=== PATIENT | female | born 1960 | race Caucasian/White ===

== ENCOUNTER 2017-08-15 23:28 | Inpatient (IN) | payer OTHER ==
[~2017-08-15] VITALS: Ht 162.6 cm; Wt 87.5 kg
[~2017-08-15 23:28] MED LIST: AMITRIPTYLINE H25 M2; ARTHRITIS PAIN650 M2 PO; ATIVAN1 MG; AUGMENTIN 875875 M1 PO; BENADRYL25 MG; CIPRO500 MG PO; CIPROFLOXACIN500 M3; DOCUSATE SODIU100 MG PO; ERYTHROCIN PO; FLAGYL500 MG PO; FLONASE 0.05%50 MCG NASAL; HAIR, SKIN & N1 EAC3 PO; HYDROCODONE-AP1 EAC6 PO; IBUPROFEN 200200 M1 PO; LEVAQUIN 500 M500 M2 PO; MIRALAX255 GM PO; OMEPRAZOLE 20 M20 M1; ONDANSETRON HCL4 M2 PO; OXYCODONE HCL 55 MG PO; PHENERGAN 25 MG25 M1 PO; PHENERGAN25 M2 PO; PRILOSEC 20 MG20 MG PO; PRILOSEC40 MG PO; REGLAN 10 MG TA10 M1; REGLAN 5 MG TAB5 MG PO; SENOKOT-S1 TA1 PO; TRANSDERM-SCO1 PATC1; VENTOLIN HFA 1818 GM INH; ZOFRAN4 MG; ZYRTEC10 MG PO
[2017-08-15 23:38] VITALS: BP 155/93
[2017-08-15] MEDS ORDERED: YOSPRALA DR 811 EACH PO (23:40)
[2017-08-15 23:56] LABS: URINE BILIRUBIN NEGATIVE (Negative); URINE BLOOD NEGATIVE (Negative); URINE CLARITY CLEAR; URINE COLOR YELLOW; URINE GLUCOSE-RANDOM NEGATIVE (Negative); URINE KETONES NEGATIVE (Negative); URINE LEUKOCYTES-REFLEX TRACE (Negative); URINE NITRITE-REFLEX NEGATIVE (Negative); URINE PROTEIN NEGATIVE (Negative); URINE SPECIFIC GRAVITY <= 1.005 (1.005-1.030); URINE UROBILINOGEN 0.2 E.U./dl (0.2-1.0)
[2017-08-16 00:05] LABS: ABSOLUTE BASOPHILS 0.1 thou/uL (0.0-0.2); ABSOLUTE EOSINOPHILS 0.2 thou/uL (0.0-0.7); ABSOLUTE LYMPHOCYTES 2.7 thou/uL (0.8-5.3); ABSOLUTE MONOCYTES 0.7 thou/uL (0.0-1.2); ABSOLUTE NEUTROPHILS 9.4 thou/uL (1.6-8.1); BASOPHILS 0.7 %; EOSINOPHILS 1.8 %; HEMATOCRIT 39.7 % (37.0-47.0); HEMOGLOBIN 13.7 gm/dL (12.0-15.0); LYMPHOCYTES 20.7 %; MCH 31.6 pg (26.0-34.0); MCHC 34.5 g/dL (28.0-37.0); MCV 91.6 fL (80.0-100.0); MONOCYTES 5.3 %; MPV 8.7 fl. (7.2-11.1); NUCLEATED RBCS 0 /100WBC; PLATELET COUNT* 269 thou/uL (150-400); POLYS 71.5 %; RBC 4.33 mil/uL (4.20-5.00); RDW-CV 13.1 % (10.5-14.5); WBC 13.2 thou/uL (4.0-11.0)
[2017-08-16 00:08] LABS: CALCIUM 9.2 mg/dL (8.5-10.1); CREATININE 1.1 mg/dL (0.6-1.3); POTASSIUM 4.1 mmol/L (3.5-5.1)
[2017-08-16 00:09] LABS: MUCUS 0-3 Light strn/LPF (None Seen); SQUAMOUS 0-3 Few /LPF (0-3); URINE RBC 0-2 Rare /HPF (0-2); URINE WBC-REFLEX 6-15 Few /HPF (0-5)
[2017-08-16 00:10] LABS: CASTS None Seen /LPF (None Seen); CRYSTALS None Seen /LPF (None Seen)
[2017-08-16 00:12] LABS: TOTAL BILIRUBIN 0.4 mg/dL (<0.1-1.0); TOTAL PROTEIN 7.8 g/dL (6.4-8.2)
[2017-08-16 01:43] LABS: ICTOTEST (BILI CONFIRMATORY) Negative (Negative)
[2017-08-16 02:59] VITALS: BP 111/34
--- NOTE | 2017-08-16 05:51 | NUR ---
patient remained stable through shift. Ambulates with steady gait to the restrom. IV infusing well. No complaints of pain sice being on unit. Pain medications given in the ed before arrival on unit. Resting in bed at this time. HOurly rounding completed as documented.
[2017-08-16 08:00] VITALS: BP 98/68
[2017-08-16 10:43] LABS: ABSOLUTE BASOPHILS 0.1 thou/uL (0.0-0.2); ABSOLUTE EOSINOPHILS 0.3 thou/uL (0.0-0.7); ABSOLUTE LYMPHOCYTES 2.5 thou/uL (0.8-5.3); ABSOLUTE MONOCYTES 0.5 thou/uL (0.0-1.2); ABSOLUTE NEUTROPHILS 5.9 thou/uL (1.6-8.1); EOSINOPHILS 3.6 %; HEMATOCRIT 38.5 % (37.0-47.0); HEMOGLOBIN 13.2 gm/dL (12.0-15.0); LYMPHOCYTES 27.3 %; MCH 31.5 pg (26.0-34.0); MCHC 34.3 g/dL (28.0-37.0); MCV 91.9 fL (80.0-100.0); MONOCYTES 4.9 %; MPV 8.5 fl. (7.2-11.1); NUCLEATED RBCS 0 /100WBC; PLATELET COUNT* 249 thou/uL (150-400); POLYS 63.2 %; RBC 4.19 mil/uL (4.20-5.00); RDW-CV 13.1 % (10.5-14.5); WBC 9.3 thou/uL (4.0-11.0)
[2017-08-16 10:51] LABS: CALCIUM 8.8 mg/dL (8.5-10.1); POTASSIUM 4.3 mmol/L (3.5-5.1)
[2017-08-16 11:57] LABS: ESR (SEDRATE) 28 mm/hr (0-30)
[2017-08-16 16:27] VITALS: BP 99/49
--- NOTE | 2017-08-16 18:41 | NUR ---
PATIENT REMAINED ALERT AND ORIENTED X'S 4. VITAL SIGNS AND SPO2 STABLE. IV CLEAN, FLUIDS INFUSING. TOLERATED ANTIBIOTICS. PATIENT DENIES PAIN DURING SHIFT. TOLERATED DIET. NO NAUSEA AND VOMITING. VOIDED AND PASSED BM WITHOUT ISSUE. COMPLETED HOURLY ROUNDING. CALL LIGHT WITHIN REACH. WILL CONTINUE TO MONITOR.
[2017-08-16 20:55] VITALS: BP 115/67
[2017-08-16 23:45] VITALS: BP 117/56
--- NOTE | 2017-08-17 00:30 | NUR ---
PATIENT ALERT AND ORIENTED. VITALS STABLE. RA. DENIES THE NEED FOR PAIN MEDICATION. TOLERATING DIET. UP INDEPENDENTLY. HOURLY ROUNDS. INSTRUCTED TO CALL FOR ASSISTANCE. BEATRIS SANTOS TOOK OVER PATIENTS CARE AT 0015. NURSING WILL CONTINUE TO MONITOR.
--- NOTE | 2017-08-17 01:09 | NUR ---
ASSUMED CARE OF PATIENT AT 0015. AGREE WITH PREVIOUS ASSESSMENT. DENIED PAIN AT THIS TIME. RESTING QUIETLY IN BED. IV ANTIBIODIC INFUSING AT THIS TIME. CALL LIGHT WITHIN REACH.
[2017-08-17 04:35] LABS: HEMOGLOBIN 12.4 gm/dL (12.0-15.0); MCH 31.8 pg (26.0-34.0); MCHC 34.4 g/dL (28.0-37.0); MCV 92.5 fL (80.0-100.0); MPV 8.7 fl. (7.2-11.1); RBC 3.9 mil/uL (4.20-5.00); RDW-CV 12.9 % (10.5-14.5); WBC 7.1 thou/uL (4.0-11.0)
[2017-08-17 05:13] LABS: ALBUMIN 3.3 g/dL (3.4-5.0); CALCIUM 8.8 mg/dL (8.5-10.1); CREATININE 0.9 mg/dL (0.6-1.3); MAGNESIUM 2.4 mg/dL (1.8-2.4); POTASSIUM 4.7 mmol/L (3.5-5.1); TOTAL BILIRUBIN 0.3 mg/dL (<0.1-1.0); TOTAL PROTEIN 6.3 g/dL (6.4-8.2)
[2017-08-17 08:00] VITALS: BP 99/43
--- NOTE | 2017-08-17 08:09 | NUR ---
ALERT AND ORIENTED X4. UP AD NATALIO. NO C/O PAIN. THIS AM REFUSED ANTIBIODIC DUE TO C/O NAUSEA. NAUSEA MEDICATION GIVEN. NEXT SHIFT SAID THEY WILL TRY TO GET PATIENT TO TAKE ANTIBIODIC. CALL LIGHT WITHIN REACH.
--- NOTE | 2017-08-17 11:04 | NUR ---
PT.UP WALKING IN HALLS. GAIT STEADY. HOPES TO GO HOME TODAY. SHE IS INDEPENDENT AND WORKS [employer]. HER CHILDREN ARE SUPPORIVE. SHE DOES NOT USE ANY DME AND NO HX OF HH. SHE WILL NOT HAVE ANY DISCHARGE NEEDS.
[2017-08-17] MEDS ORDERED: FLAGYL500 MG PO (17:05)
[2017-08-17] MEDS ORDERED: LEVAQUIN 500 M500 M2 PO (17:06)
[2017-08-17 17:07] VITALS: BP 117/56
[2017-08-17 17:51] VITALS: BP 121/73
--- NOTE | 2017-08-17 18:29 | NUR ---
PATIENT LEFT UNIT AMBULATORY AT 1711 WITH NURSING STAFF. IV DC'D. EDUCATED PATIENT ON DISCHARGE INSTRUCTIONS AND NEW MED SCRIPTS. PATIENT VERBALIZED UNDERSTANDING. ALL BELONGINGS LEFT WITH PATIENT.
--- NOTE | 2017-08-26 15:07 | CON ---
[address] [address] CONSULTATION Name: YOUNG BROWN Room: [address] IN M.R.#: [id number] Admission: 08/16/17 Attend Phys: Corey Hunter MD Discharge: 08/17/17 Date of : 64 Report #: [id number] THIS REPORT FOR: //name// CC: Corey Villanueva Baker DATE OF SERVICE: 08/16/2017 ADDENDUM The patient who presented with abdominal pain and leukocytosis with symptoms of fever and chills and found to have diverticulitis per CT. She also has constipation for which she takes Linzess. We will continue her IV antibiotics and bowel regimen. We will consider colonoscopy in 6 weeks. The patient may start having low-residue diet. <ELECTRONICALLY SIGNED> By: Dayana Melton MD 08/26/17 1507 1708 [id number] Melton MD /nt
--- NOTE | 2017-08-26 15:07 | CON ---
[address] [address] CONSULTATION Name: YOUNG BROWN Room: [address] IN .R.#: [id number] Admission: 08/16/17 Attend Phys: Corey Hunter MD Discharge: 08/17/17 Date of : 64 Report #: [id number] THIS REPORT FOR: //name// CC: Corey Acosta DICTATED BY: Alis Mitchell [facility] DATE OF SERVICE: 08/16/2017 Please note at the time of this dictation, the patient was seen and physically examined by myself. REASON FOR CONSULTATION: Abdominal pain, fever. 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 She states earlier in the week, she saw her PCP. She was having upper respiratory, head and chest congestion, felt that it was just viral in nature. She did not really notice but during this past week, her bowel habits have changed in that she had become more constipated. She states her bowels moved this morning; they were still somewhat loose, but she took a laxative of milk of mag and then another one this morning prior to the consultation. She denies any nausea or vomiting. She is no longer having the fever. She states her pain has greatly subsided at this time. The patient had last EGD and colonoscopy done back in 08/2014. EGD showed some mild gastritis, colon showed some diverticulosis of the sigmoid colon and internal hemorrhoids; otherwise was negative. ALLERGIES: PENICILLIN, ERYTHROMYCIN, METRONIDAZOLE, REGLAN AND DEXILANT. MEDICATIONS: From home include albuterol, Zyrtec and aspirin/omeprazole. PAST MEDICAL HISTORY: Rheumatoid arthritis in remission since 2016, being worked up for possible plaque psoriasis, history of diverticulitis, peptic ulcer disease, COPD with chronic bronchitis, GERD, history of H. pylori, allergies, hiatal hernia and history of colon polyps. PAST SURGICAL HISTORY: Complete hysterectomy, appendectomy, cholecystectomy, parathyroidectomy and she has had a left hemicolectomy done secondary to diverticulitis in which she had had 4 bouts prior to. FAMILY HISTORY: [place] [address] CONSULTATION Name: YOUNG BROWN Room: [address]#: [id number] Admission: 08/16/17 Attend Phys: Corey Hunter MD Discharge: 08/17/17 Date of : 64 Report #: [id number] SOCIAL HISTORY: Denies any alcohol, tobacco or illegal drug use. She quit smoking back in 2011. REVIEW OF SYSTEMS: Twelve-point review of systems is essentially negative except what is mentioned in the HPI. PHYSICAL EXAMINATION: VITAL SIGNS: Temperature 36.4, pulse 64, respirations 16, blood pressure 98/68. HEART: Regular rate and rhythm. LUNGS: Clear. ABDOMEN: Soft, positive bowel sounds in all 4 quadrants with some left lower quadrant tenderness noted to palpation. LABORATORY DATA: Hemoglobin on admission was 13.2; white count on admission was 13.2, she is down to 9.3; hematocrit is 36.5; platelets 249. Sodium 138, potassium 4.3, chloride 103, CO2 of 31, BUN is 11, creatinine 1, GFR is 55 and glucose is 136. CT of the abdomen and pelvis showed thickening of the bowel wall in the sigmoid and descending junction with adjunct, adjacent stranding with inflammatory changes. IMPRESSION: 1. Abdominal pain, diverticulitis. 2. Fever and chills. 3. Leukocytosis, resolved. 4. Family history; mother, ovarian cancer. PLAN: 1. Continue her antibiotics. 2. Advance her diet as tolerated to low residue. 3. If the patient is able to eat and drink and bowels move tomorrow, okay for her to go home on antibiotics. 4. Office visit in 2-3 weeks and schedule colon at that time. Thank you for allowing us to participate in this patient's care. Please do not hesitate to call with any questions in regard to this consult. <ELECTRONICALLY SIGNED> By: Dayana Melton MD 08/26/17 1507 1213 [id number] Melton MD /nt
== END 2017-08-17 18:32 | disposition home or self-care (01) | DRG 392 ==
LOC: M.ERS 23:28 → M.ORTHSURG 08-16 01:59 → M.TBA-ER 08-16 01:59 → M.ORTHSURG 08-16 03:02
PROVIDERS: Family Medicine; Physician Assistant; ADMIT Internal Medicine
DX: K57.32 Diverticulitis of large intestine without perforation or abscess without bleeding (principal); N39.0 Urinary tract infection, site not specified; K21.9 Gastro-esophageal reflux disease without esophagitis; K59.00 Constipation, unspecified; M06.9 Rheumatoid arthritis, unspecified; E89.0 Postprocedural hypothyroidism; J44.9 Chronic obstructive pulmonary disease, unspecified; Z86.010 Personal history of colon polyps; Z88.0 Allergy status to penicillin; Z90.49 Acquired absence of other specified parts of digestive tract; Z87.11 Personal history of peptic ulcer disease; Z88.1 Allergy status to other antibiotic agents; Z88.8 Allergy status to other drugs, medicaments and biological substances; Z80.41 Family history of malignant neoplasm of ovary; Z87.891 Personal history of nicotine dependence

== ENCOUNTER → 2017-12-30 | Outpatient (CLI) | payer OTHER ==
[~2017-12-30] MED LIST changes: +YOSPRALA DR 811 EACH PO
== END ==
LOC: M.CT 07:53
DX: Z13.6 Encounter for screening for cardiovascular disorders (principal)

== ENCOUNTER → 2018-07-11 | Outpatient (CLI) | payer OTHER ==
[2018-07-11 07:51] LABS: ALKALINE PHOSPHATASE 66 U/L (46-116); ANION GAP 7 mmol/L (7-16); BUN 12 mg/dL (7-18); CALCIUM 8.9 mg/dL (8.5-10.1); CHLORIDE 101 mmol/L (98-107); CHOLESTEROL 176 mg/dL (<200); CO2 30 mmol/L (21-32); CREATININE 0.9 mg/dL (0.6-1.3); GLUCOSE 118 mg/dL (70-99); HDL CHOLESTEROL 31 mg/dL (>40); LDL CHOLESTEROL 123 mg/dL (<100); POTASSIUM 4.3 mmol/L (3.5-5.1); SGOT 34 U/L (15-37); SGPT 66 U/L (30-65); SODIUM 138 mmol/L (136-145); TC:HDL 5.7 Ratio (Not establshd); TOTAL BILIRUBIN 0.4 mg/dL (<0.1-1.0); TRIGLYCERIDE 112 mg/dL (<150); VLDL 22 mg/dL (<40)
[2018-07-11 07:58] LABS: SERUM ASSESSMENT Clear
[2018-07-11 08:46] LABS: HEMATOCRIT 44.1 % (37.0-47.0); HEMOGLOBIN 15.1 gm/dL (12.0-15.0); MCH 31.8 pg (26.0-34.0); MCHC 34.3 g/dL (28.0-37.0); MCV 92.7 fL (80.0-100.0); MPV 8.8 fl. (7.2-11.1); RBC 4.75 mil/uL (4.20-5.00); RDW-CV 12.9 % (10.5-14.5); WBC 7.1 thou/uL (4.0-11.0)
[2018-07-11 23:12] LABS: GLYCOHEMOGLOBIN (HGB A1C) 6.3 % (4.8-5.6)
== END ==
LOC: M.LAB 07:06
PROVIDERS: Nurse Practitioner Family
DX: E20.0 Idiopathic hypoparathyroidism (principal); M06.9 Rheumatoid arthritis, unspecified; L40.9 Psoriasis, unspecified; R53.83 Other fatigue; R79.89 Other specified abnormal findings of blood chemistry

== ENCOUNTER → 2018-10-02 | Outpatient (CLI) | payer OTHER ==
[2018-10-02 10:41] LABS: URINE BILIRUBIN NEGATIVE (Negative); URINE BLOOD NEGATIVE (Negative); URINE CLARITY CLEAR; URINE COLOR YELLOW; URINE GLUCOSE-RANDOM NEGATIVE (Negative); URINE KETONES NEGATIVE (Negative); URINE LEUKOCYTES NEGATIVE (Negative); URINE NITRITE NEGATIVE (Negative); URINE PROTEIN NEGATIVE (Negative); URINE SPECIFIC GRAVITY 1.025 (1.005-1.030); URINE UROBILINOGEN 0.2 E.U./dl (0.2-1.0)
[2018-10-02 10:41] LABS: ABSOLUTE BASOPHILS 0.1 thou/uL (0.0-0.2); ABSOLUTE EOSINOPHILS 0.3 thou/uL (0.0-0.7); ABSOLUTE LYMPHOCYTES 1.8 thou/uL (0.8-5.3); ABSOLUTE MONOCYTES 0.3 thou/uL (0.0-1.2); ABSOLUTE NEUTROPHILS 5.4 thou/uL (1.6-8.1); BASOPHILS 0.8 %; EOSINOPHILS 3.3 %; HEMATOCRIT 39.1 % (37.0-47.0); HEMOGLOBIN 13.6 gm/dL (12.0-15.0); LYMPHOCYTES 23.3 %; MCH 31.7 pg (26.0-34.0); MCHC 34.8 g/dL (28.0-37.0); MONOCYTES 3.8 %; MPV 8.3 fl. (7.2-11.1); NUCLEATED RBCS 0 /100WBC; PLATELET COUNT* 242 thou/uL (150-400); POLYS 68.8 %; RDW-CV 13.1 % (10.5-14.5); WBC 7.9 thou/uL (4.0-11.0)
[2018-10-02 10:53] LABS: ALBUMIN 3.7 g/dL (3.4-5.0); ALKALINE PHOSPHATASE 62 U/L (46-116); ANION GAP 6 mmol/L (7-16); BUN 11 mg/dL (7-18); CALCIUM 8.7 mg/dL (8.5-10.1); CHLORIDE 104 mmol/L (98-107); CHOLESTEROL 149 mg/dL (<200); CO2 30 mmol/L (21-32); CREATININE 0.9 mg/dL (0.6-1.3); GLUCOSE 107 mg/dL (70-99); HDL CHOLESTEROL 28 mg/dL (>40); LDL CHOLESTEROL 105 mg/dL (<100); POTASSIUM 4.4 mmol/L (3.5-5.1); SGOT 30 U/L (15-37); SGPT 50 U/L (30-65); SODIUM 140 mmol/L (136-145); TC:HDL 5.3 Ratio (Not establshd); TOTAL BILIRUBIN 0.5 mg/dL (<0.1-1.0); TOTAL PROTEIN 7.5 g/dL (6.4-8.2); TRIGLYCERIDE 82 mg/dL (<150); VLDL 16 mg/dL (<40)
[2018-10-02 10:54] LABS: SERUM ASSESSMENT Clear
[2018-10-02 23:06] LABS: GLYCOHEMOGLOBIN (HGB A1C) 6.3 % (4.8-5.6)
[2018-10-06 14:06] LABS: ANA INTERPRETATION Negative (Negative)
== END ==
LOC: M.LAB 09:58
PROVIDERS: Family Medicine
DX: I10 Essential (primary) hypertension (principal); E88.81 Metabolic syndrome and other insulin resistance; R53.83 Other fatigue; M79.10 Myalgia, unspecified site; K21.9 Gastro-esophageal reflux disease without esophagitis; E78.00 Pure hypercholesterolemia, unspecified; Z68.34 Body mass index [BMI] 34.0-34.9, adult; Z83.3 Family history of diabetes mellitus

== ENCOUNTER → 2019-01-24 | Outpatient (CLI) | payer OTHER ==
[2019-01-24 09:55] LABS: ABSOLUTE BASOPHILS 0.1 thou/uL (0.0-0.2); ABSOLUTE EOSINOPHILS 0.3 thou/uL (0.0-0.7); ABSOLUTE MONOCYTES 0.3 thou/uL (0.0-1.2); ABSOLUTE NEUTROPHILS 3.3 thou/uL (1.6-8.1); BASOPHILS 0.9 %; EOSINOPHILS 5.1 %; HEMATOCRIT 41.5 % (37.0-47.0); HEMOGLOBIN 14.4 gm/dL (12.0-15.0); LYMPHOCYTES 34.2 %; MCH 32.2 pg (26.0-34.0); MCHC 34.7 g/dL (28.0-37.0); MONOCYTES 5.3 %; MPV 8.5 fl. (7.2-11.1); NUCLEATED RBCS 0 /100WBC; PLATELET COUNT* 255 thou/uL (150-400); POLYS 54.5 %; RBC 4.46 mil/uL (4.20-5.00)
[2019-01-24 10:04] LABS: ALBUMIN 3.8 g/dL (3.4-5.0); CALCIUM 8.8 mg/dL (8.5-10.1); CREATININE 0.9 mg/dL (0.6-1.3); POTASSIUM 4.6 mmol/L (3.5-5.1); TOTAL BILIRUBIN 0.4 mg/dL (<0.1-1.0); TOTAL PROTEIN 8.2 g/dL (6.4-8.2)
[2019-01-25 05:37] LABS: GLYCOHEMOGLOBIN (HGB A1C) 6.2 % (4.8-5.6)
== END ==
LOC: M.LAB 09:27
PROVIDERS: Family Medicine
DX: R73.03 Prediabetes (principal); I10 Essential (primary) hypertension; R73.09 Other abnormal glucose

== ENCOUNTER → 2019-02-05 | Outpatient (CLI) | payer OTHER ==
[2019-02-06 06:06] LABS: HEPATITIS B SURFACE AG Negative (Negative)
== END ==
LOC: M.LAB 15:06
PROVIDERS: Family Medicine
DX: R94.5 Abnormal results of liver function studies (principal)

== ENCOUNTER → 2019-02-13 | Outpatient (CLI) | payer OTHER ==
--- NOTE | 2019-02-13 13:28 | 2DMMODE ---
[place] [address] 2 D/M-MODE ECHOCARDIOGRAM Name: YOUNG BROWN Room: [facility]#: [id number] Admission: 02/13/19 Attend Phys: Ted Guzman, Discharge: Date of : 64 Date of Service: 02/13/19 1328 Report #: [id number] THIS REPORT FOR: //name// APPROVED REPORT Study performed: 02/13/2019 10:32:18 EXAM: Comprehensive 2D, Doppler, and color-flow Echocardiogram Patient Location: Out-Patient Status: routine BSA: 1.97 HR: 65 bpm BP: 134/903 mmHg Rhythm: NSR Other Information Study Quality: Good Indications Dizziness 2D Dimensions IVSd: 8.11 (7-11mm) LVOT Diam: 19.31 (18-24mm) LVDd: 46.94 mm PWd: 8.54 (7-11mm) Ascending Ao: 33.62 (22-36mm) LVDs: 30.23 (25-40mm) Aortic Root: 29.60 mm Volumes Left Atrial Volume (Systole) LA ESV Index: 18.40 mL/m2 Aortic Valve AoV Peak Vivek.: 1.59 m/s AO Peak Gr.: 10.10 mmHg LVOT Max P.66 mmHg AO Mean Gr.: 6.25 mmHg LVOT Mean P.44 mmHg LVOT Max V: 1.38 m/s AO V2 VTI: 31.32 cm LVOT Mean V: 0.84 m/s RACHEL (VTI): 2.50 cm2 LVOT V1 VTI: 26.78 cm Mitral Valve E/A Ratio: 1.05 MV Decel. Time: 225.84 ms MV E Max Vivek.: 0.62 m/[place] [address] 2 D/M-MODE ECHOCARDIOGRAM Name: YOUNG BORWN Room: [facility]#: [id number] Admission: 02/13/19 Attend Phys: Ted Guzman, Discharge: Date of : 64 Date of Service: 02/13/19 1328 Report #: [id number] MV PHT: 65.49 ms MVA (PHT): 3.36 cm2 TDI E/Lateral E': 4.77 E/Medial E': 4.13 Medial E' Vivek.: 0.15 m/s Lateral E' Vivek.: 0.13 m/s Pulmonary Valve PV Peak Vivek.: 1.09 m/s PV Peak Gr.: 4.76 mmHg Tricuspid Valve RAP Estimate: 5.00 mmHg TR Peak Gr.: 19.79 mmHg RVSP: 24.00 mmHg PA Pressure: 24.00 mmHg Left Ventricle The left ventricle is normal size. There is normal LV segmental wall motion. There is normal left ventricular wall thickness. Left ventricular systolic function is normal. The left ventricular ejection fraction is within the normal range. LVEF is 55-60%. The left ventricular diastolic function is normal. Right Ventricle The right ventricle is normal size. The right ventricular systolic function is normal. Atria The left atrium size is normal. The right atrium size is normal. Aortic Valve The aortic valve is normal in structure. No aortic regurgitation is present. There is no aortic valvular stenosis. Mitral Valve The mitral valve is normal in structure. Trace mitral regurgitation. No evidence of mitral valve stenosis. Tricuspid Valve The tricuspid valve is normal in structure. Trace tricuspid regurgitation. No pulmonary hypertension. Pulmonic Valve The pulmonary valve is normal in structure. There is no pulmonic [place] [address] 2 D/M-MODE ECHOCARDIOGRAM Name: YOUNG BROWN Room: [facility]#: [id number] Admission: 02/13/19 Attend Phys: Ted Guzman, Discharge: Date of : 64 Date of Service: 02/13/19 1328 Report #: [id number] Great Vessels The aortic root is normal in size. IVC is normal in size and collapses >50% with inspiration. Pericardium There is no pericardial effusion. <Conclusion> The left ventricle is normal size. There is normal left ventricular wall thickness. Left ventricular systolic function is normal. The left ventricular ejection fraction is within the normal range. LVEF is 55-60%. The left ventricular diastolic function is normal. The right ventricle is normal size. The left atrium size is normal. The aortic valve is normal in structure. The mitral valve is normal in structure. Trace mitral regurgitation. The tricuspid valve is normal in structure. IVC is normal in size and collapses >50% with inspiration. There is no pericardial effusion. There is normal LV segmental wall motion. <ELECTRONICALLY SIGNED> By: Oc Hernandez MD, FACC 02/13/19 1328 1328 1328 Oc Hernandez MD, FACC /INF
--- NOTE | 2019-02-14 12:48 | EKG ---
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
--- NOTE | 2019-02-17 17:31 | 24HR ---
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 The mean heart rate was 73 bpm. The maximum heart rate was 116 bpm corresponding with sinus tachycardia 4:55 PM. The minimum heart rate was 38 bpm corresponding with sinus bradycardia 8:53 AM. The patient exhibited tachycardia defined as heart rate greater than 100 bpm 5% of the monitored time. The patient exhibited bradycardia defined as heart rate less than 50 bpm 2% of the monitored time. There were rare premature ventricular contractions. There were no significant episodes of nonsustained or sustained ventricular arrhythmia. There were rare premature atrial contractions noted. There was a single atrial triplet noted. There were no episodes of significant nonsustained or sustained supraventricular arrhythmia. There was no evidence of underlying atrial fibrillation or flutter. There were no significant pauses and rhythm. A diary was submitted reporting palpitations and dizziness. Symptoms did not appear to correlate with [place] [address] HOLTER MONITOR REPORT Name: BROWNYOUNG SHOOK Room: [facility]#: [id number] Admission: 02/13/19 Attend Phys: Ted Guzman, Discharge: Date of : 64 Date of Service: 02/16/19923 Report #: [id number] Electronically Signed On 02-17-2019 17:31:10 CDT by Ted Guzman [email or web address] <ELECTRONICALLY SIGNED> By: Ted Guzman MD, KIM 02/17/19 1731 3 3 Ted Guzman MD, FACAndree /EPI
== END ==
LOC: M.CRD 10:30
DX: R00.2 Palpitations (principal); R42 Dizziness and giddiness; K21.9 Gastro-esophageal reflux disease without esophagitis; E78.00 Pure hypercholesterolemia, unspecified; Z88.8 Allergy status to other drugs, medicaments and biological substances; Z88.0 Allergy status to penicillin

== ENCOUNTER → 2019-02-20 | Outpatient (CLI) | payer OTHER | LOC: M.ULTRA 07:36 | DX: K76.0 Fatty (change of) liver, not elsewhere classified (principal); R94.5 Abnormal results of liver function studies ==

== ENCOUNTER → 2019-02-25 | Outpatient (CLI) | payer OTHER ==
[2019-02-25 16:40] LABS: % SATURATION 21 % (20-39); IRON 69 ug/dL (50-175)
== END ==
LOC: M.LAB 15:45
PROVIDERS: Family Medicine
DX: R94.5 Abnormal results of liver function studies (principal)

== ENCOUNTER → 2019-04-20 | Outpatient (CLI) | payer OTHER ==
[2019-04-20 11:53] LABS: ALBUMIN 3.9 g/dL (3.4-5.0); CALCIUM 9.2 mg/dL (8.5-10.1); CREATININE 1.1 mg/dL (0.6-1.3); POTASSIUM 4.1 mmol/L (3.5-5.1); TOTAL BILIRUBIN 0.3 mg/dL (<0.1-1.0); TOTAL PROTEIN 8.1 g/dL (6.4-8.2)
[2019-04-20 23:06] LABS: GLYCOHEMOGLOBIN (HGB A1C) 5.9 % (4.8-5.6)
== END ==
LOC: M.LAB 11:24
PROVIDERS: Family Medicine
DX: Z12.31 Encounter for screening mammogram for malignant neoplasm of breast (principal)

== ENCOUNTER → 2019-05-06 | Outpatient (CLI) | payer OTHER ==
[2019-05-08 14:09] LABS: ANA INTERPRETATION Negative (Negative)
== END ==
LOC: M.RAD 13:10
PROVIDERS: Internal Medicine Rheumatology
DX: M77.52 Other enthesopathy of left foot and ankle (principal); M77.51 Other enthesopathy of right foot and ankle; M79.642 Pain in left hand; M79.641 Pain in right hand

== ENCOUNTER → 2019-07-11 | Outpatient (CLI) | payer OTHER ==
[2019-07-11 10:05] LABS: ABSOLUTE BASOPHILS 0.1 thou/uL (0.0-0.2); ABSOLUTE EOSINOPHILS 0.3 thou/uL (0.0-0.7); ABSOLUTE LYMPHOCYTES 1.7 thou/uL (0.8-5.3); ABSOLUTE MONOCYTES 0.3 thou/uL (0.0-1.2); ABSOLUTE NEUTROPHILS 4.8 thou/uL (1.6-8.1); EOSINOPHILS 3.5 %; HEMATOCRIT 40.2 % (37.0-47.0); HEMOGLOBIN 13.9 gm/dL (12.0-15.0); LYMPHOCYTES 23.7 %; MCH 32.1 pg (26.0-34.0); MCHC 34.7 g/dL (28.0-37.0); MCV 92.5 fL (80.0-100.0); MONOCYTES 4.6 %; NUCLEATED RBCS 0 /100WBC; PLATELET COUNT* 243 thou/uL (150-400); POLYS 67.2 %; RBC 4.34 mil/uL (4.20-5.00); RDW-CV 12.9 % (10.5-14.5); WBC 7.2 thou/uL (4.0-11.0)
[2019-07-11 10:22] LABS: ALBUMIN 3.7 g/dL (3.4-5.0); CALCIUM 8.3 mg/dL (8.5-10.1); CREATININE 0.9 mg/dL (0.6-1.3); POTASSIUM 4.5 mmol/L (3.5-5.1); TOTAL BILIRUBIN 0.3 mg/dL (<0.1-1.0); TOTAL PROTEIN 7.5 g/dL (6.4-8.2)
[2019-07-11 11:05] LABS: ESR (SEDRATE) 14 mm/hr (0-30)
== END ==
LOC: M.LAB 08:59
PROVIDERS: Family Medicine
DX: I10 Essential (primary) hypertension (principal); R60.9 Edema, unspecified

== ENCOUNTER → 2019-09-30 | Outpatient (CLI) | payer OTHER | LOC: M.MRI 15:12 | DX: M50.121 Cervical disc disorder at C4-C5 level with radiculopathy (principal) ==

== ENCOUNTER → 2020-07-13 | Outpatient (CLI) | payer OTHER | LOC: M.RAD 12:23 | PROVIDERS: ATTEND Family Medicine | DX: Z12.31 Encounter for screening mammogram for malignant neoplasm of breast (principal) ==

== ENCOUNTER 2020-11-11 10:17 | Emergency (ER) | payer OTHER ==
[~2020-11-11] VITALS: Ht 165.1 cm; Wt 90.7 kg
[2020-11-11] MEDS ORDERED: OMEPRAZOLE40 MG PO (10:34)
[2020-11-11] MEDS ORDERED: LORATIDINE 10 M10 M1 PO (10:34)
[2020-11-11] MEDS ORDERED: ALLERGY RELIEF25 MG PO (10:37)
[2020-11-11 10:57] LABS: ABSOLUTE BASOPHILS 0.1 thou/uL (0.0-0.2); ABSOLUTE EOSINOPHILS 0.3 thou/uL (0.0-0.7); ABSOLUTE MONOCYTES 0.4 thou/uL (0.0-1.2); ABSOLUTE NEUTROPHILS 6.1 thou/uL (1.6-8.1); BASOPHILS 1.1 %; EOSINOPHILS 3.8 %; HEMATOCRIT 40.7 % (37.0-47.0); HEMOGLOBIN 14.2 gm/dL (12.0-15.0); LYMPHOCYTES 22.5 %; MCH 31.8 pg (26.0-34.0); MONOCYTES 4.2 %; MPV 8.3 fl. (7.2-11.1); NUCLEATED RBCS 0 /100WBC; PLATELET COUNT* 230 thou/uL (150-400); POLYS 68.4 %; RBC 4.47 mil/uL (4.20-5.00); RDW-CV 12.8 % (10.5-14.5); WBC 8.9 thou/uL (4.0-11.0)
[2020-11-11] MEDS ORDERED: ZYRTEC 10 MG TA10 MG PO ×2 (11:16→11:51)
[2020-11-11] MEDS ORDERED: PEPCID20 MG PO ×2 (11:16→11:51)
[2020-11-11] MEDS ORDERED: PREDNISONE 20 M20 M1 PO ×2 (11:16→11:51)
[2020-11-11 11:19] LABS: CALCIUM 8.9 mg/dL (8.5-10.1); CREATININE 0.9 mg/dL (0.6-1.3); POTASSIUM 4.2 mmol/L (3.5-5.1)
[2020-11-11 11:23] LABS: ALBUMIN 3.6 g/dL (3.4-5.0); TOTAL BILIRUBIN 0.4 mg/dL (<0.1-1.0); TOTAL PROTEIN 7.4 g/dL (6.4-8.2)
[2020-11-11 11:53] VITALS: BP 121/79
== END 2020-11-11 11:54 | disposition home or self-care (01) ==
LOC: M.ERS 10:17
PROVIDERS: Family Medicine
DX: L40.0 Psoriasis vulgaris (principal); T43.015A Adverse effect of tricyclic antidepressants, initial encounter; Z90.49 Acquired absence of other specified parts of digestive tract; Y92.89 Other specified places as the place of occurrence of the external cause

== ENCOUNTER → 2021-01-30 | Outpatient (CLI) | payer OTHER ==
[~2021-01-30] MED LIST changes: +ALLERGY RELIEF25 MG PO; +LORATIDINE 10 M10 M1 PO; +OMEPRAZOLE40 MG PO; +PEPCID20 MG PO; +PREDNISONE 20 M20 M1 PO; +ZYRTEC 10 MG TA10 MG PO
[2021-01-30 12:23] LABS: URINE BILIRUBIN NEGATIVE (Negative); URINE BLOOD NEGATIVE (Negative); URINE CLARITY CLEAR; URINE COLOR YELLOW; URINE GLUCOSE-RANDOM NEGATIVE (Negative); URINE KETONES NEGATIVE (Negative); URINE LEUKOCYTES NEGATIVE (Negative); URINE NITRITE NEGATIVE (Negative); URINE PROTEIN NEGATIVE (Negative); URINE UROBILINOGEN 0.2 E.U./dl (0.2-1.0)
[2021-01-30 12:24] LABS: ABSOLUTE BASOPHILS 0.1 thou/uL (0.0-0.2); ABSOLUTE EOSINOPHILS 0.3 thou/uL (0.0-0.7); ABSOLUTE LYMPHOCYTES 2.3 thou/uL (0.8-5.3); ABSOLUTE MONOCYTES 0.4 thou/uL (0.0-1.2); BASOPHILS 0.8 %; EOSINOPHILS 3.4 %; HEMATOCRIT 44.4 % (37.0-47.0); HEMOGLOBIN 15.1 gm/dL (12.0-15.0); LYMPHOCYTES 25.7 %; MCH 31.2 pg (26.0-34.0); MCV 91.8 fL (80.0-100.0); NUCLEATED RBCS 0 /100WBC; PLATELET COUNT* 282 thou/uL (150-400); POLYS 66.1 %; RBC 4.84 mil/uL (4.20-5.00); RDW-CV 12.7 % (10.5-14.5)
[2021-01-30 12:37] LABS: ALBUMIN 4.2 g/dL (3.4-5.0); ALKALINE PHOSPHATASE 79 U/L (46-116); ANION GAP 6 mmol/L (7-16); BUN 10 mg/dL (7-18); CALCIUM 9.5 mg/dL (8.5-10.1); CHLORIDE 101 mmol/L (98-107); CHOLESTEROL 187 mg/dL (<200); CO2 32 mmol/L (21-32); CREATININE 0.9 mg/dL (0.6-1.3); GLUCOSE 111 mg/dL (70-99); HDL CHOLESTEROL 30 mg/dL (>40); LDL CHOLESTEROL 126 mg/dL (<100); PHOSPHORUS* 5.1 mg/dL (2.5-4.9); POTASSIUM 4.1 mmol/L (3.5-5.1); SGOT 28 U/L (15-37); SGPT 56 U/L (30-65); SODIUM 139 mmol/L (136-145); TC:HDL 6.2 Ratio (Not establshd); TOTAL BILIRUBIN 0.5 mg/dL (<0.1-1.0); TRIGLYCERIDE 159 mg/dL (<150); VLDL 32 mg/dL (<40)
[2021-01-30 12:40] LABS: SERUM ASSESSMENT Clear
[2021-01-31 07:08] LABS: GLYCOHEMOGLOBIN (HGB A1C) 6.4 % (4.8-5.6)
== END ==
LOC: M.LAB 11:48
PROVIDERS: ATTEND Family Medicine
DX: Z00.00 Encounter for general adult medical examination without abnormal findings (principal); I10 Essential (primary) hypertension; R73.03 Prediabetes; R79.89 Other specified abnormal findings of blood chemistry; E78.00 Pure hypercholesterolemia, unspecified